=== PATIENT | male | born 1955 | race Asian ===

== ENCOUNTER 2024-12-10 16:31 | Emergency (ER) | payer OTHER, SELFPAY ==
[2024-12-10 16:44] VITALS: BP 153/79
--- NOTE | 2024-12-10 16:53 | ED.SKININJ ---
HPI-Injury
General
Chief Complaint: Skin Surface Trauma
Source: patient
Exam Limitations: none
Time Seen by Provider: 12/10/24 16:52
Nursing documentation reviewed up to this point in time: agreed with
History of Present Illness-Injury
Is this injury a work related problem?: No
Is pt an associate of [facility]/[place]?: No
Initial Injury comments:
Patient reports trip and fall. Hit his left ear on corner of desk. No LOC. Has laceration to right ear eulogio. 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
Past History
Past History
ED Past Medical History: None
Review of Systems
Review of Systems
Allergies reviewed?: Yes
All Other Systems: ROS reviewed and negative except as documented in HPI and ROS
Constitutional: Reports no symptoms
EENT: Reports other (laceration to left ear eulogio)
Musculoskeletal: Reports no symptoms
Skin: Reports other (laceration to left ear eulogio)
Neurological: Reports no symptoms
Psychiatric: Reports no symptoms
Skin Exam
Laceration
Left Ear:
Length in cm: 3
Orientation: C shaped
Type of Laceration: simple
Any active bleeding?: low grade venous oozing
Distal skin color and temperature: normal-warm & good color
Normal distal neurovascular exam: Yes
Range of motion: full
Phy Exam
General Physical Exam
General Presentation: well appearing and no apparent distress
General age: appears stated age
General Skin: warm and dry
General Habitus: normal
General Mental: alert
Neurological Exam
Neurological Exam: alert, oriented x3, CN II-XII intact, no motor deficits, no sensory deficits and speech normal
Musculoskeletal Exam
Musculoskeletal Exam: full ROM and neuro vasc intact
Skin Exam
Skin Exam: normal color, warm/dry and no rash
Psychiatric Exam
Psychiatric Exam: normal mood/affect
Course
Orders/Labs/Results
Orders:
Orders
12/10/24 17:39
CT Head W/o Iv Contrast Urgent
Comment:
Reason For Exam: trauma
Facial Bones wo Contrast CT [CT Facial Bones W/o Iv Contras] Urgent
Comment:
Reason For Exam: trauma
Vital Signs
Initial and Last Documented VS:
Initial Vital Signs
Temp Pulse Resp BP Pulse Ox
98.8 F 74 17 153/79 99
12/10/24 16:44 12/10/24 16:44 12/10/24 16:44 12/10/24 16:44 12/10/24 16:44
Last Documented Vital Signs
Temp Pulse Resp BP Pulse Ox
98.8 F 74 17 153/79 99
12/10/24 16:44 12/10/24 16:44 12/10/24 16:44 12/10/24 16:44 12/10/24 16:44
Procedures
Laceration Closure
Left Ear:
Status of Wound: clean
Description of Wound Edges: sharp
Preparation: cleaned with saline and cleaned with Betadine
Anesthesia: 1% Lidocaine
Revision/Debridement: routine- no revision
Wound exploration: explored to base- no FB
Type of Closure: single layer closure
*Radiology
Radiology exam reviewed: radiology read reviewed
*Pulse Oximetry
Patient hypoxic: no
ED Attending Note
-
Portions of this chart may have been created with voice recognition software.� Occasional wrong word or��sound alike� substitutions may have occurred due to the inherent limitations of voice recognition software.
Discharge Plan
Departure
Patient Disposition: Home (Routine Discharge)
Date of Disposition: 12/10/24
Time of Disposition: 19:18
Patient with high blood pressure during this ER visit?: No
Condition: Good
Covid-19: Not Applicable
Discharge Problem:
Laceration of ear
Instructions: Laceration Repair With Stitches (DC), Using Cold for Pain
Referrals:
Nuha Tian MD [Family Provider] - (Sutures can be removed in 5-7 days.)
Interventions
Interventions:
*Risk Screen - Suicide Last Done: 12/10/24 16:46
*General Assessment Last Done: 12/10/24 16:46
*Neglect/Abuse Screening Last Done: 12/10/24 16:46
*ED- Fall Risk Assessment Last Done: 12/10/24 19:21
*ED COVID-19 Vaccine History Last Done: 12/10/24 16:46
*Nursing Disposition Last Done: 12/10/24 19:23
ED-Skin Assessment Last Done: 12/10/24 16:45
Discharge Date and Time
Discharge Date/Time: 12/10/24 19:24
Print Language: ROMANSH
== END 2024-12-10 19:24 | disposition home or self-care (01) ==
LOC: EMR 16:31
PROVIDERS: EMERGENCY PHYSICIAN Emergency Medicine; FAMILY PHYSICIAN Internal Medicine
DX: S01.312A Laceration without foreign body of left ear, initial encounter (principal); S09.90XA Unspecified injury of head, initial encounter; W01.190A Fall on same level from slipping, tripping and stumbling with subsequent striking against furniture, initial encounter; E11.9 Type 2 diabetes mellitus without complications; I10 Essential (primary) hypertension; E78.5 Hyperlipidemia, unspecified
CPT/HCPCS: 99284; 12013; 70450; 70486

== ENCOUNTER 2024-12-19 18:52 | Emergency (ER) | payer OTHER, SELFPAY ==
[2024-12-19 19:00] VITALS: BP 110/60
--- NOTE | 2024-12-19 20:00 | ED.SKININJ ---
HPI-Injury
General
Chief Complaint: Wound Check/Suture Removal
Source: patient
Exam Limitations: none
Time Seen by Provider: 12/19/24 19:33
Nursing documentation reviewed up to this point in time: agreed with
History of Present Illness-Injury
Is this injury a work related problem?: No
Is pt an associate of [facility]/[place]?: No
Initial Injury comments:
Patient to ED for suture removal left ear. Seen in ED 1 week ago for traumatic laceration repair. No other complaints.
Past History
Past History
ED Past Medical History: None
Review of Systems
Review of Systems
Allergies reviewed?: Yes
All Other Systems: ROS reviewed and negative except as documented in HPI and ROS
Constitutional: Reports no symptoms
Musculoskeletal: Reports no symptoms
Skin: Reports other (Sutures intact left ear laceration repair. Mild soft tissue swelling, no drainage, no erythema)
Neurological: Reports no symptoms
Psychiatric: Reports no symptoms
Phy Exam
General Physical Exam
General Presentation: well appearing and no apparent distress
General age: appears stated age
General Skin: warm and dry
General Habitus: normal
Musculoskeletal Exam
Musculoskeletal Exam: full ROM and neuro vasc intact
Skin Exam
Skin Exam: normal color, warm/dry, no rash and other (Laceration repair left ear 1 weekago. Sutures intact. No evidence of infection. Sutures removed tonight by me using #11 blade. Steri stips applied. He tolerated procedure without incident.)
Psychiatric Exam
Psychiatric Exam: normal mood/affect
Course
Vital Signs
Initial and Last Documented VS:
Initial Vital Signs
Temp Pulse Resp BP Pulse Ox
98.5 F 92 18 110/60 97
12/19/24 19:00 12/19/24 19:00 12/19/24 19:00 12/19/24 19:00 12/19/24 19:00
Last Documented Vital Signs
Temp Pulse Resp BP Pulse Ox
98.5 F 92 18 110/60 97
12/19/24 19:00 12/19/24 19:00 12/19/24 19:00 12/19/24 19:00 12/19/24 19:00
*Critical Care Note
Total Time (30-74mins, 75-104mins- exclusive of procedures): Not Applicable
ED Attending Note
-
Portions of this chart may have been created with voice recognition software.� Occasional wrong word or��sound alike� substitutions may have occurred due to the inherent limitations of voice recognition software.
Discharge Plan
Departure
Patient Disposition: Home (Routine Discharge)
Date of Disposition: 12/19/24
Time of Disposition: 19:58
Patient with high blood pressure during this ER visit?: No
Condition: Good
Covid-19: Not Applicable
Discharge Problem:
Encounter for removal of sutures
Instructions: Stitches Removal
Activity Restrictions/Additional Instructions:
FOllow up with your family doctor.
Interventions
Interventions:
*Risk Screen - Suicide Last Done: 12/19/24 19:00
*General Assessment Last Done: 12/19/24 19:00
*Neglect/Abuse Screening Last Done: 12/19/24 19:00
*ED- Fall Risk Assessment Last Done: 12/19/24 20:09
*ED COVID-19 Vaccine History Last Done: 12/19/24 19:00
*Nursing Disposition Last Done: 12/19/24 20:09
ED-Skin Assessment Last Done: 12/19/24 20:06
Discharge Date and Time
Discharge Date/Time: 12/19/24 20:10
Print Language: SLOVENIAN
== END 2024-12-19 20:10 | disposition home or self-care (01) ==
LOC: EMR 18:52
PROVIDERS: EMERGENCY PHYSICIAN Student in an Organized Health Care Education/Training Program; FAMILY PHYSICIAN Internal Medicine
DX: Z48.02 Encounter for removal of sutures (principal)
CPT/HCPCS: 99281